=== PATIENT | male | born 1975 | race African-American/Black ===

== ENCOUNTER 2017-11-02 09:02 | Emergency (ER) | payer SELFPAY ==
[~2017-11-02] VITALS: Ht 177.8 cm; Wt 90.7 kg
[2017-11-02] MEDS ORDERED: BENAZEPRIL HCL40 MG ORAL (09:10)
[2017-11-02] MEDS ORDERED: HYDROCHLOROTHIA25 MG ORAL (09:10)
[2017-11-02] MEDS ORDERED: ATORVASTATIN CA40 MG ORAL ×2 (09:10→09:31)
[2017-11-02 09:18] VITALS: BP 155/106
[2017-11-02] MEDS ORDERED: Lidocaine 1% MPF 10mg/ml 5ml INJ ONE (09:30)
[2017-11-02] MEDS ORDERED: metroNIDAZOLE 500mg tab ORAL ONE (09:30)
[2017-11-02] MEDS ORDERED: Azithromycin 250mg tab ORAL ONE (09:30)
--- NOTE | 2017-11-02 16:46 | Emergency Room Report ---
History of Present Illness General Chief Complaint: Male Urogenital Problems Source: Patient Present Illness HPI Patient presents to the emergency department today complaining of penile discharge. He states that he had unprotected sex a couple days ago and since then has had discharge burning he states that it feels like he might have gonorrhea. The patient has had gonorrhea in the past. He denies any testicular pain or groin swelling. He complains of mild dysuria. He denies any fever or chest pain shortness of breath. No complete or noted. He states that he's contacted his partner and his partner will be treated. No other modifying factors. No other associated signs and symptoms. No other complaints were noted. Allergies: Coded Allergies: No Known Allergies (Unverified , 11/02/17) Patient History Past Medical History: HTN Past Surgical History: none Pertinent Family History: none Social History: Denies: smoking, alcohol use, drug use Reviewed Nursing Documentation: PMH: Agreed; PSxH: Agreed Nursing Documentation-PMH Hx Hypertension: Yes Review of Systems All Other Systems: negative except mentioned in HPI Physical Exam Vital Signs Date Time Temp Pulse Resp B/P (MAP) Pulse Ox O2 Delivery O2 Flow Rate FiO2 11/02/17 09:06 98.4 88 19 160/110 97 Room Air 98.4 Sp02 EP Interpretation: reviewed, normal General Appearance: normal inspection, well appearing, no apparent distress, alert Head: atraumatic Eyes: bilateral eye normal inspection ENT: normal ENT inspection, hearing grossly normal, normal voice Neck: normal inspection, full range of motion, supple, no bony tend Respiratory: normal inspection, lungs clear, normal breath sounds, no respiratory distress, no retraction, no wheezing Cardiovascular #1: regular rate, rhythm, no edema Gastrointestinal: normal inspection, normal bowel sounds, non tender, soft, no guarding, no hernia Genitourinary: no CVA tenderness, other - urethritis Musculoskeletal: normal inspection, back normal, normal range of motion Neurologic: normal inspection, alert, responsive, speech normal Psychiatric: normal inspection, judgement/insight normal, mood/affect normal Skin: normal inspection, normal color, no rash Medical Decision Making Diagnostic Impression: Primary Impression: Medication refill Additional Impression: STD (male) ER Course Patient presents to the emergency department today complaining of having STD. Differential considerations include urethritis, UTI, orchitis. Patient's exam is consistent with urethritis. We'll start patient on antibiotics. Recommended treatment a partner.Patient is advised to follow up with primary doctor in 2-3 days and return the emergency room for any worsening symptoms and as needed. Last Vital Signs Date Time Temp Pulse Resp B/P (MAP) Pulse Ox O2 Delivery O2 Flow Rate FiO2 11/02/17 09:50 98.4 80 19 155/106 97 Room Air 98.4 Status: improved Disposition: HOME, SELF-CARE Condition: Stable Scripts Atorvastatin Calcium* (ATORVASTATIN CALCIUM*) 40 Mg Tablet 40 MG ORAL BEDTIME for 30 Days, TAB Prov: JB MORENO M.D. 11/02/17 Referrals: NOT CHOSEN IPA/,REFERRING (PCP) Patient Instructions: Urethritis, Adult JB MORENO M.D. Nov 02, 2017 16:46
== END 2017-11-02 09:53 | disposition home or self-care (01) ==
LOC: EMR 09:53
DX: Z76.0 Encounter for issue of repeat prescription (principal); A64 Unspecified sexually transmitted disease; I10 Essential (primary) hypertension
CPT/HCPCS: 96372; 99283; J0696